=== PATIENT | female | born 1945 | race Caucasian/White ===

== ENCOUNTER 2019-12-21 20:04 | Emergency (ER) | payer MEDICARE ==
[~2019-12-21] VITALS: Ht 157.5 cm; Wt 124.7 kg
--- NOTE | 2019-12-21 20:20 | NUR ---
rad called for stat gallbladder U/S
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
[2019-12-21 20:37] LABS: BASOPHILS # (AUTO) 0.1 (0.0-0.1); BASOPHILS % 0.3 % (0.0-1.0); EOSINOPHILS # (AUTO) 0.1 (0.0-0.4); EOSINOPHILS % 0.5 % (0.0-6.0); HEMOGLOBIN 12.7 g/dL (12.0-16.0); LYMPHOCYTES # (AUTO) 13.2 (1.0-3.2); LYMPHOCYTES % 63.5 % (18.0-39.1); MEAN CORPUSCULAR HEMOGLOBIN 30.7 pg (28-32); MEAN CORPUSCULAR HGB CONC 32.6 g/dL (31-35); MEAN CORPUSCULAR VOLUME 94.2 fL (81-99); MONOCYTES # (AUTO) 0.7 (0.2-0.8); MONOCYTES % 3.6 % (4.4-11.3); NEUTROPHILS # (AUTO) 6.6 (2.1-6.9); NEUTROPHILS % 31.7 % (38.7-80.0); PLATELET COUNT 342 x10e3/uL (140-360); RED BLOOD COUNT 4.14 x10e6/uL (3.6-5.1); RED CELL DISTRIBUTION WIDTH 13.6 % (11.7-14.4)
[2019-12-21] MEDS ORDERED: SODIUM CHLORIDE 0.9% 1000ML 1,000 ML IV SCH (20:45)
[2019-12-21] MEDS ORDERED: ONDANSETRON HCL INJ 2MG/ML 2ML 2 MG/ML VIAL IV PRN (20:45)
[2019-12-21] MEDS ORDERED: FENTANYL CITRATE/PF 100MCG/2 ML INJ IV PRN (20:45)
[2019-12-21 20:51] LABS: ALANINE AMINOTRANSFERASE 29 IU/L (0-55); ALBUMIN 3.8 g/dL (3.5-5.0); ALBUMIN/GLOBULIN RATIO 1.2 (0.8-2.0); ALKALINE PHOSPHATASE 62 IU/L (40-150); BLOOD UREA NITROGEN 13 mg/dL (7-26); BUN/CREATININE RATIO 17 (6-25); CALCIUM 9.3 mg/dL (8.4-10.2); CARBON DIOXIDE 25 mmol/L (22-29); CHLORIDE 106 mmol/L (98-107); CREATININE, SERUM 0.77 mg/dL (0.57-1.11); EST GLOMERULAR FILTRATION RATE > 60 ML/MIN (60-); GLUCOSE 147 mg/dL (74-118); SODIUM 142 mmol/L (136-145)
--- NOTE | 2019-12-21 22:55 | Diagnostic Imaging Report ---
EXAM: Right Upper Quadrant Ultrasound INDICATION: ^RUQ pain ^20191221 ^2135 COMPARISON: None. TECHNIQUE: Transverse and longitudinal images of the right upper abdomen were obtained. FINDINGS: Limited by body habitus and inability to roll. Liver: Size: 21.7 cm in the right midclavicular line, enlarged Appearance: Increased echogenicity, smooth contour Mass: No focal masses Gallbladder: Stones/Sludge: None. 6 mm gallbladder polyp. Wall: 0.3 cm Appearance: No pericholecystic fluid or hydrops. Sonographic Jane's Sign: Negative Bile Ducts: Intrahepatic Ducts: No dilatation Extrahepatic Ducts: Common bile duct measures 0.5 cm, no dilatation Pancreas: Not well-visualized. Right Kidney: Size: 9.4 cm Echogenicity: Normal Parenchymal thickness: Normal Collecting system: No hydronephrosis Stones: None Cyst/Mass: None Vessels: Aorta: Visualized portions are normal Inferior Vena Cava: Visualized portions are normal Main Portal Vein: 1.1 cm, normal size with hepatopetal flow. Free Fluid: No ascites or pleural effusion IMPRESSION: Limited study as above. Enlarged steatotic liver. 6 pulmonary gallbladder polyp. Recommend follow-up ultrasound in 6-12 months to ensure stability. Signed by: Dr. Ye Briones MD on 12/21/2019 10:51 PM
[2019-12-21 23:31] LABS: BILIRUBIN,URINE NEGATIVE (NEGATIVE); CLARITY,URINE SL CLOUDY (CLEAR); COLOR,URINE YELLOW (YELLOW); KETONES,URINE NEGATIVE (NEGATIVE); LEUKOCYTE ESTERASE ,URINE NEGATIVE (NEGATIVE); NITRITE,URINE NEGATIVE (NEGATIVE); PROTEIN,URINE DIPSTICK TRACE (NEGATIVE); URINE UROBILINOGEN 0.2 mg/dL (0.2 - 1)
[2019-12-21 23:36] LABS: AMORPHOUS SEDIMENT,URINE FEW (FEW); BACTERIA,URINE FEW /HPF; EPITHELIAL CELLS,URINE MANY /LPF; WBC,URINE (MAN) 0-5 /HPF (0-5)
[2019-12-22 00:32] VITALS: BP 132/55
--- OUTSIDE RECORDS SUMMARY | 2019-12-23 19:21 | XMS REPORT | Continuity of Care Document ---
Author Author [employer] AIDE Louis Gravity Jack Information [facility] Address Unknown Phone Unavailable Care Team Providers Care Wildlife Veterinarian Name Role Phone Gravity Jack Information Exchange Unavailable Un available Problems Problem Status Onset Date Classification Date Reported Comments Source ENCOUNTER CHANGE/REMOVAL SURGICAL WOUND DRESSING Active 02/22/2013 Condition 07/08/2013 [facility] ABSCESS, BREAST, RIGHT Active 02/08/2013 Condition 07/08/2013 [facility] BREAST CANCER Active 11/23/2012 Condition 07/08/2013 [facility] OBESITY Active 11/23/2012 Condition 07/08/2013 [facility] HTN Active 1 Condition 07/08/2013 [facility] HYPERCHOLESTEROLEMIA Active Condition 07/08/2013 [facility] OSTEOARTHRITIS Active Condition 07/08/2013 [facility] Medications Medication Details Route Status Patient Instructions Ordering Provider Order Date Source KETOROLAC TROMETHAMINE 10 MG TABS 1 tab po tid prn pain No Longer Active 02/15/2013 [facility] CURITY IODOFORM PACKING STRIP MISC 1/4 inch strip - pack into wound daily as instructed Active 02/08/2013 [facility] DIOVAN 320 MG TABS Active 11/23/2012 [facility] ATENOLOL 50 MG TABS Active 11/23/2012 [facility] LIPITOR 10 MG TABS Active 11/23/2012 [facility] PRILOSEC 20 MG CPDR Active 11/23/2012 [facility] Allergies, Adverse Reactions, Alerts Substance Category Reaction Severity Reaction type Status Date Reported Comments Source CODEINE Drug allergy CODEINE 11/23/2012 [facility] SYNDICATE CODEINE Food allergy SYNDICATE CODEINE 11/23/2012 [facility] IODINE DYE Drug allergy IODINE DYE 11/23/2012 [facility] NSAIDS Drug allergy NSAIDS 11/23/2012 [facility] SULFA Drug allergy SULFA 11/23/2012 [facility] LATEX Environmental allergy LATEX 11/23/2012 [facility] TRAMADOL Drug allergy TRAMADOL 12/16/2012 [facility] Immunizations No Data Provided for This Section Results No Data Provided for This Section Pathology Reports No Data Provided for This Section Diagnostic Reports No Data Provided for This Section Consultation Notes No Data Provided for This Section Discharge Summaries No Data Provided for This Section History and Physicals No Data Provided for This Section Vital Signs Vital Sign Value Date Comments Source Weight 278 05/04/2013 [facility] Temperature Oral (F) 98.1 F 05/04/2013 [facility] Heart Rate 65 05/04/2013 [facility] Systolic (mm Hg) 114 05/04/2013 [facility] Diastolic (mm Hg) 70 05/04/2013 [facility] Weight 279 04/06/2013 [facility] Temperature Oral (F) 98.1 F 04/06/2013 [facility] Heart Rate 80 04/06/2013 [facility] Systolic (mm Hg) 135 04/06/2013 [facility] Diastolic (mm Hg) 75 04/06/2013 [facility] Weight 278 03/23/2013 [facility] Temperature Oral (F) 98.0 F 03/23/2013 [facility] Heart Rate 79 03/23/2013 [facility] Systolic (mm Hg) 136 03/23/2013 [facility] Diastolic (mm Hg) 66 03/23/2013 [facility] Weight 273 03/02/2013 [facility] Temperature Oral (F) 98.0 F 03/02/2013 [facility] Heart Rate 73 03/02/2013 [facility] Systolic (mm Hg) 138 03/02/2013 [facility] Diastolic (mm Hg) 77 03/02/2013 [facility] Weight 279 02/22/2013 [facility] Systolic (mm Hg) 167 02/22/2013 [facility] Diastolic (mm Hg) 80 02/22/2013 [facility] Temperature Oral (F) 97.5 F 02/22/2013 [facility] Heart Rate 71 02/22/2013 [facility] Weight 274 02/15/2013 [facility] Temperature Oral (F) 98.3 F 02/15/2013 [facility] Heart Rate 84 02/15/2013 [facility] Systolic (mm Hg) 152 02/15/2013 [facility] Diastolic (mm Hg) 80 02/15/2013 [facility] Weight 276 02/08/2013 [facility] Temperature Oral (F) 98.0 F 02/08/2013 [facility] Heart Rate 81 02/08/2013 [facility] Systolic (mm Hg) 141 02/08/2013 [facility] Diastolic (mm Hg) 73 02/08/2013 [facility] Weight 276 12/16/2012 [facility] Temperature Oral (F) 98.0 F 12/16/2012 [facility] Heart Rate 76 12/16/2012 [facility] Systolic (mm Hg) 123 12/16/2012 [facility] Diastolic (mm Hg) 76 12/16/2012 [facility] Weight 276 11/23/2012 [facility] Height 63 1 [facility] Temperature Oral (F) 97.4 F 11/23/2012 [facility] Heart Rate 76 11/23/2012 [facility] Systolic (mm Hg) 130 11/23/2012 [facility] Diastolic (mm Hg) 82 11/23/2012 [facility] Encounters Location Location Details Encounter Type Encounter Number Reason For Visit Attending Provider ADM Date DC Date Status Source [facility] General Surgery 350 Office Visit [id number] Bubba Trevino MD 04/06/2013 04/06/2013 [facility] General Surgery 350 Office Visit [id number] Bubba Trevino MD 05/04/2013 05/04/2013 [facility] Lab Report [id number] Bubba Trevino MD 07/08/2013 07/08/2013 [facility] Procedures Procedure Code Date Perfomer Comments Source mammogram [id number] 12/14/2012 Completed at [facility] Assessment and Plan No Data Provided for This Section Plan of Care No Data Provided for This Section Social History No Data Provided for This Section Family History No Data Provided for This Section Advance Directives No Data Provided for This Section Functional Status No Data Provided for This Section
--- OUTSIDE RECORDS SUMMARY | 2019-12-23 19:21 | XMS REPORT | Continuity of Care Document ---
Author Author [facility] Organization [facility] Address [address] [place] [address] Phone Unavailable Care Team Providers Care Draftsperson Name Role Phone Sam Mullen Attphyniall Unavailable Problems Condition Name Condition Details Condition Category Status Onset Date Resolution Date Last Treatment Date Treating Clinician Comments Source ENCOUNTER CHANGE/REMOVAL SURGICAL WOUND DRESSING ENCOUNTER CHANGE/REMOVAL SURGICAL WOUND DRESSING Active 02/22/2013 Condition 07/08/2013 [facility] Condition Active 2013-02-22 00:00:00 2013-07-08 06:16:00 [facility] ABSCESS, BREAST, RIGHT ABSC ESS, BREAST, RIGHT Active 02/08/2013 Condition 07/08/2013 [facility] Condition Active 2013-02-08 00:00:00 2013-07-08 06:16:00 [facility] BREAST CANCER [facility] CANCER Active 11/23/2012 Condition 07/08/2013 [facility] Condition Active 2012-11-23 00:00:00 2013-07-08 06:16:00 [facility] OBESITY OBES ITY Active 11/23/2012 Condition 07/08/2013 [facility] Condition Active 2012-11-23 00:00:00 2013-07-08 06:16:00 [facility] HTN HTN Active 11/23/2012 Condition 07/08/2013 [facility] Condition Active 2012-11-23 00:00:00 2013-07-08 06:16:00 [facility] HYPERCHOLESTEROLEMIA HYPE RCHOLESTEROLEMIA Active Condition 07/08/2013 [facility] Condition Active 2013-07-08 0 6:16:00 [facility] OSTEOARTHRITIS OSTE OARTHRITIS Active Condition 07/08/2013 [facility] Condition Active 2013-07-08 06:16:00 [facility] Allergies, Adverse Reactions, Alerts Allergy Name Allergy Type Status Severity Reaction(s) Onset Date Inacti ve Date Treating Clinician Comments Source TRAMADOL TRAMADOL Active 2012-12-16 00:00:00 [facility] CODEINE CODEINE Active 2012-11-23 00:00:00 [facility] SYNDICATE CODEINE SYNDICATE CODEINE Active 2012-11-23 00:00 :00 [facility] IODINE DYE IODINE DYE Active 2012-11-23 00:00:00 [facility] NSAIDS NSAIDS Active 2012-11-23 00:00:00 [facility] SULFA SULFA Active 2012-11-23 00:00:00 [facility] LATEX LATEX Active 2012-11-23 00:00:00 [facility] Medications Ordered Medication Name Filled Medication Name Start Date Stop Da te Current Medication? Ordering Clinician Indication Dosage Frequency Signature (SIG) Comments Components Source KETOROLAC TROMETHAMINE 10 MG TABS 2013-02-15 00:00:00 No 1 tab po tid prn pain [facility] CURITY IODOFORM PACKING STRIP MISC 2013-02-08 00:00:00 Yes 1/4 inch strip - pack into wound daily as instructed [facility] DIOVAN 320 MG TABS 2012-11-23 00:00:00 Yes [facility] ATENOLOL 50 MG TABS 2012-11-23 00:00:00 Yes [facility] LIPITOR 10 MG TABS 2012-11-23 00:00:00 Yes [facility] PRILOSEC 20 MG CPDR 2012-11-23 00:00:00 Yes [facility] Vital Signs Vital Name Observation Time Observation Value Comments Source Weight 2013-05-04 14:52:26 [facility] Temperature Oral (F) 2013-05-04 14:52:26 98.1 F [facility] Heart Rate 2013-05-04 14:52:26 [facility] Systolic (mm Hg) 2013-05-04 14:52:26 [facility] Diastolic (mm Hg) 2013-05-04 14:52:26 [facility] Weight 2013-04-06 20:01:59 [facility] Temperature Oral (F) 2013-04-06 20:01:59 98.1 F [facility] Heart Rate 2013-04-06 20:01:59 [facility] Systolic (mm Hg) 2013-04-06 20:01:59 [facility] Diastolic (mm Hg) 2013-04-06 20:01:59 [facility] Weight 2013-03-23 20:03:00 [facility] Temperature Oral (F) 2013-03-23 20:03:00 98.0 F [facility] Heart Rate 2013-03-23 20:03:00 [facility] Systolic (mm Hg) 2013-03-23 20:03:00 [facility] Diastolic (mm Hg) 2013-03-23 20:03:00 [facility] Weight 2013-03-02 15:28:04 [facility] Temperature Oral (F) 2013-03-02 15:28:04 98.0 F [facility] Heart Rate 2013-03-02 15:28:04 [facility] Systolic (mm Hg) 2013-03-02 15:28:04 [facility] Diastolic (mm Hg) 2013-03-02 15:28:04 [facility] Weight 2013-02-22 20:12:08 [facility] Systolic (mm Hg) 2013-02-22 20:12:08 [facility] Diastolic (mm Hg) 2013-02-22 20:12:08 [facility] Temperature Oral (F) 2013-02-22 20:12:08 97.5 F [facility] Heart Rate 2013-02-22 20:12:08 [facility] Weight 2013-02-15 19:19:02 [facility] Temperature Oral (F) 2013-02-15 19:19:02 98.3 F [facility] Heart Rate 2013-02-15 19:19:02 [facility] Systolic (mm Hg) 2013-02-15 19:19:02 [facility] Diastolic (mm Hg) 2013-02-15 19:19:02 [facility] Weight 2013-02-08 19:26:47 [facility] Temperature Oral (F) 2013-02-08 19:26:47 98.0 F [facility] Heart Rate 2013-02-08 19:26:47 [facility] Systolic (mm Hg) 2013-02-08 19:26:47 [facility] Diastolic (mm Hg) 2013-02-08 19:26:47 [facility] Weight 2012-12-16 14:15:33 [facility] Temperature Oral (F) 2012-12-16 14:15:33 98.0 F [facility] Heart Rate 2012-12-16 14:15:33 [facility] Systolic (mm Hg) 2012-12-16 14:15:33 [facility] Diastolic (mm Hg) 2012-12-16 14:15:33 [facility] Weight 2012-11-23 19:34:47 [facility] Height 2012-11-23 19:34:47 [facility] Temperature Oral (F) 2012-11-23 19:34:47 97.4 F [facility] Heart Rate 2012-11-23 19:34:47 [facility] Systolic (mm Hg) 2012-11-23 19:34:47 [facility] Diastolic (mm Hg) 2012-11-23 19:34:47 [facility] Procedures Procedure Date / Time Performed Performing Clinician [facility] e mammogram 2012-12-14 19:50:47 [facility] Encounters Start Date/Time End Date/Time [facility] Source 2018-06-17 08:50:42 Out[id number] 2019-12-08 09:26:00 2019-12-08 09:26:00 Outpatient [id number] Results Test Description Test Time Test Comments Results Result Comments Source US GALLBLADDER 2019-12-21 22:48:00 [facility] 1945 Sex: F [place] [id number] Patient Name: AIDE RONQUILLO MR #: [id number] : 1945 Age/Sex: 74/F Req #: [id number] Adm Physician: Ordered by: Kemar Mullen MD Report #: [id number] Location: Room/Bed: Procedure: [id number] US/US GALLBLADDER Exam Date: 12/21/19 Exam Time: 2135 REPORT STATUS: Signed EXAM: Right Upper Quadrant Ultrasound INDICATION: RUQ pain 20191221 COMPARISON: None. TECHNIQUE: Transverse and longitudinal images of the right upper abdomen were obtained. FINDINGS: Limited by body habitus and inability to roll. Liver: Size: 21.7 cm in the right midclavicular line, enlarged Appearance: Increased echogenicity, smooth contour Mass: No focal masses Gallbladder: Stones/Sludge: None. 6 mm gallbladder polyp. Wall: 0.3 cm Appearance: No pericholecystic fluid or hydrops. Sonographic Jane's Sign: Negative Bile Ducts: Intrahepatic Ducts: No dilatation Extrahepatic Ducts: Common bile duct measures 0.5 cm, no dilatation Pancreas: Not well-visualized. Right Kidney: Size: 9.4 cm Echogenicity: Normal Parenchymal thickness: Normal Collecting system: No hydronephrosis Stones: None Cyst/Mass: None Vessels: Aorta: Visualized portions are normal Inferior Vena Cava: Visualized portions are normal Main Portal Vein: 1.1 cm, normal size with hepatopetal flow. Free Fluid: No ascites or pleural effusion IMPRESSION: Limited study as above. Enlarged steatotic liver. 6 pulmonary gallbladder polyp. Recommend follow-up ultrasound in 6-12 months to ensure stability. Signed by: Dr. Ye Jalloh MD on 10:51 PM Dictated By: YE JALLOH MD 50 Transcribed By: NATHANIEL on 12/21/192250 COPY TO: KEMAR MULLEN MD
== END 2019-12-22 00:13 | disposition home or self-care (01) ==
LOC: ER 21:27
DX: R10.11 Right upper quadrant pain (principal); R11.2 Nausea with vomiting, unspecified; E11.65 Type 2 diabetes mellitus with hyperglycemia; I10 Essential (primary) hypertension; E78.5 Hyperlipidemia, unspecified; K21.9 Gastro-esophageal reflux disease without esophagitis; Z85.3 Personal history of malignant neoplasm of breast; Z85.6 Personal history of leukemia; Z96.653 Presence of artificial knee joint, bilateral
CPT/HCPCS: 36415; 76705; 80053; 81001; 83690; 85025; 93005; 99284; J2405; J3010; J7030